=== PATIENT | female | born 1945 | race Caucasian/White ===

== ENCOUNTER 2017-08-18 21:53 | Inpatient (IN) | payer MEDICARE, BC ==
[~2017-08-18] VITALS: Ht 157.5 cm; Wt 64.1 kg
--- NOTE | 2017-08-18 22:26 | NUR ---
Dr. Hinojosa at bedside for MSE.
--- NOTE | 2017-08-18 22:34 | NUR ---
Paged [facility] panel as DR Hinojosa requested. Waiting for Dr Helton to call back
[2017-08-18] MEDS ORDERED: VANCOMYCIN IV 1,000 MG in IV DEXTROSE 5% 250 ML IV ONE (23:00)
--- NOTE | 2017-08-18 23:00 | NUR ---
[facility] panel has not called back. Re paged Dr Helton as Dr Hinojosa ordered
[2017-08-18 23:11] LABS: *BILIRUBIN,URIN NEGATIVE (NEGATIVE); *BLOOD, URINE NEGATIVE (NEGATIVE); *CLARITY,URINE CLEAR (CLEAR); *KETONES,URINE NEGATIVE (NEGATIVE); *PROTEIN,URINE NEGATIVE (NEGATIVE); *UROBILINOGEN,URINE 0.2 E.U./dl (NORMAL); LEUKOCYTE ESTERASE ,URINE NEGATIVE (NEGATIVE); NITRITE, URINE NEGATIVE (NEGATIVE); UGLUCOSE NEGATIVE (NEGATIVE)
[2017-08-18] MEDS ORDERED: VANCOMYCIN IV 200 ML ONE (23:13)
[2017-08-18 23:16] LABS: *COLOR,URINE STRAW (YELLOW)
[2017-08-18 23:22] LABS: BACTERIA,URINE NONE SEEN /HPF (NONE SEEN); RBC,URINE NONE SEEN /HPF (0-3); SQUAMOUS EPITHELIAL CELL,UR FEW /HPF (NONE SEEN); WBC,URINE 0-3 /HPF (0-3)
[2017-08-18] MEDS ORDERED: LEVO125T8 PO (23:23)
[2017-08-18] MEDS ORDERED: RIVA15TA2 PO (23:23)
[2017-08-18] MEDS ORDERED: MIRT15TA7 PO (23:23)
[2017-08-18] MEDS ORDERED: LORA-259 PO (23:23)
--- NOTE | 2017-08-18 23:30 | NUR ---
Dr Helton has not returned call. Repaged Dr Helton. Waiting for call back
[2017-08-18 23:36] LABS: BASOPHILS % (AUTO) 1.1 % (0.0-2.0); EOSINOPHILS # (AUTO) 0.1 K/uL (0.0-0.7); EOSINOPHILS % (AUTO) 3.2 % (0.0-7.0); HEMATOCRIT 40.1 % (31.2-41.9); LYMPHOCYTES # (AUTO) 0.5 K/uL (20.0-40.0); LYMPHOCYTES % (AUTO) 14.7 % (20.5-51.5); MEAN CORPUSCULAR HEMOGLOBIN 33.2 uug (24.7-32.8); MEAN CORPUSCULAR HGB CONC 35 g/dL (32.3-35.6); MEAN CORPUSCULAR VOLUME 95.3 fL (75.5-95.3); MONOCYTES # (AUTO) 0.5 K/uL (2.0-10.0); MONOCYTES % (AUTO) 14.9 % (0.0-11.0); NEUTROPHILS # (AUTO) 2.4 K/uL (1.8-8.9); NEUTROPHILS % (AUTO) 66.1 % (38.5-71.5); PLATELET COUNT (AUTO) 191 K/uL (179-408); RED BLOOD CELL COUNT(AUTO) 4.21 MIL/uL (3.63-4.92); WHITE BLOOD COUNT (AUTO) 3.6 K/uL (3.8-11.8)
--- NOTE | 2017-08-18 23:40 | NUR ---
Repaged Dr Helton. Waiting for call back
[2017-08-18 23:46] LABS: CARBON DIOXIDE 27 mmol/L (21-32); CHLORIDE 108 mmol/L (98-107); CREATININE 0.7 mg/dL (0.6-1.3); GLUCOSE 104 mg/dL (74-106); POTASSIUM 3.3 mmol/L (3.5-5.1); UREA NITROGEN, BLOOD 19 mg/dL (7-18)
[2017-08-18 23:58] LABS: ALANINE AMINOTRANSFERASE 20 U/L (14-59); ALKALINE PHOSPHATASE 90 U/L (50-136); ASPARTATE AMINOTRANSFERASE 16 U/L (15-37); BILIRUBIN,DIRECT 0.1 mg/dL (0.0-0.2); BILIRUBIN,TOTAL 0.2 mg/dL (0.2-1.0); TOTAL PROTEIN, SERUM 5.7 g/dL (6.4-8.2)
--- NOTE | 2017-08-19 00:10 | NUR ---
Dr. Hinojosa on panel call with Carolee Varela NP.
--- NOTE | 2017-08-19 00:30 | NUR ---
Passed report to Ami CARLSON Tele.
--- NOTE | 2017-08-19 00:43 | NUR ---
Admitted a 72 years old female with Diagnosis of DVT. Patient AAOx4. Denies any pain or SOB at this time. SR on tele at 72/min. BLE with 2+ pitting edema. PICC line on right upper arm intact and patent. Routine admission care done. Plan of care initiated. Safety measure initiated. call herrera within reach. Addendum: 08/19/17 at 1717 by BECKI ELLISON RN Port a cath on right upper arm #[id number]
[2017-08-19 01:00] VITALS: BP 103/52
[2017-08-19] MEDS ORDERED: HYDROCODONE/APAP 5-325MG TABLET PO PRN (01:45)
[2017-08-19] MEDS ORDERED: MAGNESIUM HYDROXIDE 30 ML LIQUID UDC PO PRN (01:45)
[2017-08-19] MEDS ORDERED: ONDANSETRON 4 MG/2 ML VIAL IV PRN (01:45)
[2017-08-19] MEDS ORDERED: Z GUARD REMEDY PASTE 57 GM TUBE TOP PRN (01:45)
[2017-08-19] MEDS ORDERED: ACETAMINOPHEN 325 MG TABLET PO PRN (01:45)
[2017-08-19] MEDS ORDERED: ZOLPIDEM 5 MG TABLET PO PRN (01:45)
[2017-08-19] MEDS: IV NS 1000 ML 1,000 ML IV PRN ×2 (02:32→19:45)
[2017-08-19] MEDS ORDERED: HEPARIN/D5W DRIP 500 ML ONE (02:38)
[2017-08-19 05:50] VITALS: BP 92/51
[2017-08-19] MEDS: HEPARIN/D5W DRIP 500 ML IV PRN (05:52)
--- NOTE | 2017-08-19 06:10 | NUR ---
Patient AAOx4. In no acute distress. Denies any pain or SOB. O2 sat at 94% on RA. Port a cath on right upper arm remains intact and patent. IVF infusing. Heparin drip also infusing. SR on tele at 84/min. Needs assessed and attended to. Safety measure maintained and call herrera within reach.
[2017-08-19 06:53] LABS: CARBON DIOXIDE 26 mmol/L (21-32); CHLORIDE 110 mmol/L (98-107); CREATININE 0.6 mg/dL (0.6-1.3); GLUCOSE 94 mg/dL (74-106); POTASSIUM 3.3 mmol/L (3.5-5.1); UREA NITROGEN, BLOOD 19 mg/dL (7-18)
--- NOTE | 2017-08-19 07:30 | NUR ---
Received pt in bed awake, alert and oriented times 4. Pt is noted to be anxious and nervous about her health condition. States no pain. No SOB, distress or discomfort
[2017-08-19 07:39] LABS: BASOPHILS # (AUTO) 0.1 K/uL (0.0-8.0); BASOPHILS % (AUTO) 0.9 % (0.0-2.0); EOSINOPHILS # (AUTO) 0.1 K/uL (0.0-0.7); EOSINOPHILS % (AUTO) 2.4 % (0.0-7.0); LYMPHOCYTES # (AUTO) 0.6 K/uL (20.0-40.0); LYMPHOCYTES % (AUTO) 9.3 % (20.5-51.5); MEAN CORPUSCULAR HEMOGLOBIN 33.8 uug (24.7-32.8); MEAN CORPUSCULAR HGB CONC 36 g/dL (32.3-35.6); MONOCYTES # (AUTO) 0.9 K/uL (2.0-10.0); MONOCYTES % (AUTO) 14.8 % (0.0-11.0); NEUTROPHILS # (AUTO) 4.3 K/uL (1.8-8.9); NEUTROPHILS % (AUTO) 72.6 % (38.5-71.5); PLATELET COUNT (AUTO) 249 K/uL (179-408); RED BLOOD CELL COUNT(AUTO) 2.91 MIL/uL (3.63-4.92)
[2017-08-19 07:58] LABS: HEMATOCRIT 27.6 % (31.2-41.9)
[2017-08-19 08:00] LABS: HEMOGLOBIN 9.8 g/dL (10.9-14.3)
[2017-08-19] MEDS ORDERED: LEVOTHYROXINE SODIUM 125 MCG TABLET PO SCH (09:00)
[2017-08-19] MEDS ORDERED: HEPARIN SODIUM,PORCINE 5,000 UNITS/ML VIAL IV PRN ×2 (09:15)
[2017-08-19 11:18] VITALS: BP 105/55
[2017-08-19] MEDS ORDERED: POTASSIUM CHLORIDE 20 MEQ TAB.PRT.SR PO ONE (11:45)
[2017-08-19 15:13] VITALS: BP 133/46
--- NOTE | 2017-08-19 19:44 | NUR ---
Pt is in bed. No apparent s/s of SOB, pain, distress or discomfort.
[2017-08-19 20:00] VITALS: BP 114/53
[2017-08-19] MEDS: MIRTAZAPINE 15 MG TABLET PO SCH (21:21)
[2017-08-19] MEDS: LORAZEPAM 1 MG TABLET PO SCH (21:21)
--- NOTE | 2017-08-19 21:30 | NUR ---
Received patient awake & alert no SOB denies chest pain. Still complaining of left leg discomfort. On Heparin drip w/ drip rate of 1300 units/hr (26 ml/hr) for left leg positive DVT. Current PTT is 41.4 sec. Bolus of 2600 units (52 ml) was given then adjusted drip rate to 1450 units/hr (29 ml/hr) per Weight-Based Heparin Dosing Protocol. Patient tolerating no sign of active bleeding noted. Assisted to bedside commode, patient had large soft formed BM. Sponge bath provided, kept comfortable. Routine night meds given. Tylenol 650 mg po provided for left leg pain. Repeat PTT at 0200 AM was ordered. Will continue to monitor.
--- NOTE | 2017-08-20 | NUR ---
No significant change. Assisted to bedside commode.
[2017-08-20] MEDS: HEPARIN/D5W DRIP 500 ML IV PRN ×2 (02:42→22:47)
--- NOTE | 2017-08-20 03:00 | NUR ---
PTT result showed 72.7 seconds. Heparin drip rate decreased by 2 units/kg/h per Weight-Based Heparin Dosing (current Heparin drip rate is 1450 - 150 = 1300 units/hr). Will do repeat PTT at 0800 AM.
--- NOTE | 2017-08-20 03:22 | NUR ---
Asleep, no sign of distress.
[2017-08-20 05:25] VITALS: BP 106/48
[2017-08-20] MEDS: LEVOTHYROXINE SODIUM 125 MCG TABLET PO SCH (05:27)
--- NOTE | 2017-08-20 07:15 | NUR ---
No acute resp distress, patient awake at this time & worried about current condition. Report given to Coty CARLSON.
--- NOTE | 2017-08-20 07:30 | NUR ---
Pt is awake, alert and oriented times 4. Pt states no pain at this time. Pt is asking about Dr. Tsai. Pt is under no immediate s/s of SOB, pain, distress or discomfort. noted pt is still concern over her left leg swelling.
[2017-08-20 08:43] LABS: EOSINOPHILS # (AUTO) 0.1 K/uL (0.0-0.7); LYMPHOCYTES # (AUTO) 0.8 K/uL (20.0-40.0); MONOCYTES # (AUTO) 0.5 K/uL (2.0-10.0); NEUTROPHILS # (AUTO) 1.8 K/uL (1.8-8.9)
[2017-08-20 08:46] LABS: CARBON DIOXIDE 23 mmol/L (21-32); CHLORIDE 112 mmol/L (98-107); CHOLESTEROL 105 mg/dL (<200); CREATININE 0.5 mg/dL (0.6-1.3); GLUCOSE 93 mg/dL (74-106); HDL CHOLESTEROL 38 mg/dL (40-60); MAGNESIUM 1.7 mg/dL (1.8-2.4); PHOSPHOROUS 4.7 mg/dL (2.5-4.9); POTASSIUM 3.4 mmol/L (3.5-5.1); TRIGLYCERIDES 48 MG/DL (30-150); UREA NITROGEN, BLOOD 12 mg/dL (7-18)
[2017-08-20 08:51] LABS: BASOPHILS # (AUTO) 0.1 K/uL (0.0-8.0); BASOPHILS % (AUTO) 1.8 % (0.0-2.0); EOSINOPHILS % (AUTO) 4.3 % (0.0-7.0); HEMATOCRIT 28.2 % (31.2-41.9); LYMPHOCYTES % (AUTO) 25.2 % (20.5-51.5); MEAN CORPUSCULAR HEMOGLOBIN 33.6 uug (24.7-32.8); MEAN CORPUSCULAR HGB CONC 35 g/dL (32.3-35.6); MEAN CORPUSCULAR VOLUME 94.8 fL (75.5-95.3); MONOCYTES % (AUTO) 14.2 % (0.0-11.0); NEUTROPHILS % (AUTO) 54.5 % (38.5-71.5); PLATELET COUNT (AUTO) 248 K/uL (179-408); RED BLOOD CELL COUNT(AUTO) 2.98 MIL/uL (3.63-4.92)
[2017-08-20 08:55] LABS: WHITE BLOOD COUNT (AUTO) 3.3 K/uL (3.8-11.8)
--- NOTE | 2017-08-20 11:00 | NUR ---
Pt is asking about the lateral transfer to [facility]. Pt is asking if [employer] OPERATOR will see her today. Pt is asking about Dr. Tsai. Pt is asking about her left leg swelling. Pt is asking about the possibility about having a filter place on her left leg. 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
[2017-08-20 11:48] VITALS: BP 123/53
--- NOTE | 2017-08-20 13:00 | NUR ---
Pt has been compliant with her medications
[2017-08-20] MEDS ORDERED: POTASSIUM CHLORIDE 20 MEQ TAB.PRT.SR PO ONE (13:45)
[2017-08-20] MEDS: MAGNESIUM SULFATE/D5W 100 ML IV SCH ×2 (14:19→17:25)
[2017-08-20 16:09] VITALS: BP 111/46
--- NOTE | 2017-08-20 18:16 | NUR ---
Arterial left leg US ordered for left leg swelling. Noted VIRTUAL ASSISTANT consult with the pt and daughter over the phone. Daughter insists on transferring pt to [facility]. VIRTUAL ASSISTANT explained best evidence based practices for the pt's care.
--- NOTE | 2017-08-20 18:58 | NUR ---
Pt is awake alert and oriented time 4 with no apparent s/s of pain distress, discomfort or SOB
--- NOTE | 2017-08-20 19:35 | NUR ---
Patient awake & alert no SOB denies chest pain. left leg elevated on a pillow & remains swollen. On Heparin drip w/ drip rate of 1300 units/hr (26 ml/hr) per Weight-Based Heparin Dosing. Current PTT 46.3 sec. For repeat PTT in Am. Patient still asking about current status of her [facility] transfer. Discussed current plan of care, patient verbalized understanding. Will continue to monitor.
[2017-08-20 20:20] VITALS: BP 114/55
[2017-08-20] MEDS: MIRTAZAPINE 15 MG TABLET PO SCH (21:02)
[2017-08-20] MEDS: LORAZEPAM 1 MG TABLET PO SCH (21:03)
[2017-08-20] MEDS: IV NS 1000 ML 1,000 ML IV PRN (22:50)
[2017-08-21 04:00] VITALS: BP 123/57
[2017-08-21] MEDS: LEVOTHYROXINE SODIUM 125 MCG TABLET PO SCH (05:54)
[2017-08-21 06:17] LABS: CARBON DIOXIDE 24 mmol/L (21-32); CHLORIDE 111 mmol/L (98-107); CREATININE 0.6 mg/dL (0.6-1.3); GLUCOSE 93 mg/dL (74-106); POTASSIUM 3.8 mmol/L (3.5-5.1); UREA NITROGEN, BLOOD 11 mg/dL (7-18)
--- NOTE | 2017-08-21 07:00 | NUR ---
Patient rested well. Heparin infusing well via right upper arm portacath w/ drip rate of 1300 units/hr (26 ml/hr) per Weight-Based Heparin Dosing. Assisted w/ all needs, no acute resp distress.
--- NOTE | 2017-08-21 07:50 | NUR ---
PTT is 57.5, levels are at therapeutic range, will continue same dose, no change as protocol and PTT levels drawn tomorrow morning
[2017-08-21] MEDS ORDERED: APIXABAN 5 MG TABLET PO SCH (09:00)
--- NOTE | 2017-08-21 09:11 | NUR ---
Eliquis not given. Pt was on Heparin drip until it was discontinued at 0900. Pt is aware that she is discharged
--- NOTE | 2017-08-21 11:25 | NUR ---
Pt has signed discharge papers and personal belonging list. Pt has a physical copy of prescriptions. Pt asked to faxed over prescription to her prefer pharmacy, [facility]. Prescription was faxed over.
[2017-08-21 11:40] VITALS: BP 107/53
--- NOTE | 2017-08-21 14:25 | NUR ---
Pt was taken down to lobby where the pt's daughter was waiting for her. Pt left in stable condition with no immediate s/s of respiratory distress, discomfort and pt states no pain.
== END 2017-08-21 14:30 | disposition home or self-care (01) | DRG 300 ==
LOC: ER 21:57 → TELE 08-19 00:31 → MED 08-19 14:30
PROVIDERS: ADMIT Nurse Practitioner Acute Care; ATTEND Nurse Practitioner Acute Care
DX: I82.412 Acute embolism and thrombosis of left femoral vein (principal); C85.94 Non-Hodgkin lymphoma, unspecified, lymph nodes of axilla and upper limb; D64.9 Anemia, unspecified; I82.4Z2 Acute embolism and thrombosis of unspecified deep veins of left distal lower extremity; E87.6 Hypokalemia; Z79.01 Long term (current) use of anticoagulants; Z85.3 Personal history of malignant neoplasm of breast; Z90.12 Acquired absence of left breast and nipple; Z82.49 Family history of ischemic heart disease and other diseases of the circulatory system; Z80.9 Family history of malignant neoplasm, unspecified; Z85.828 Personal history of other malignant neoplasm of skin; Z85.118 Personal history of other malignant neoplasm of bronchus and lung; Z90.710 Acquired absence of both cervix and uterus; Z92.21 Personal history of antineoplastic chemotherapy; E89.0 Postprocedural hypothyroidism; F32.9 Major depressive disorder, single episode, unspecified
CPT/HCPCS: 36415; 71045; 73630; 83735; 84100; 85025; 85610; 85730; 87086; 93005; A4663; J1644; J3370; J3475; J7030

== ENCOUNTER 2018-02-18 18:13 | Emergency (ER) | payer MEDICARE, BC ==
[~2018-02-18] VITALS: Ht 157.5 cm; Wt 63.5 kg
[~2018-02-18 18:13] MED LIST: LEVO125T8 PO; LORA-259 PO; MIRT15TA7 PO
[2018-02-18] MEDS ORDERED: MIRT15TA PO (18:30)
[2018-02-18] MEDS ORDERED: ONDA4TAB5 PO (18:30)
[2018-02-18] MEDS ORDERED: PANT40TA4 PO (18:30)
--- NOTE | 2018-02-18 18:34 | NUR ---
pt in room awaitng naila.
--- NOTE | 2018-02-18 19:03 | NUR ---
Patient discharged to home in stable conditon. Written and verbal after care instructions given. Patient verbalizes understanding of instructions.
[2018-02-18 19:04] VITALS: BP 117/71
== END 2018-02-18 19:05 | disposition home or self-care (01) ==
LOC: ER 18:13
DX: H04.002 Unspecified dacryoadenitis, left lacrimal gland (principal); I10 Essential (primary) hypertension; Z90.710 Acquired absence of both cervix and uterus
CPT/HCPCS: A4663